=== PATIENT | male | born 1960 | race Caucasian/White ===

== ENCOUNTER 2023-04-30 06:20 | Outpatient (CLI) | payer OTHER, SELFPAY ==
--- NOTE | 2023-04-30 08:07 | W.ANESCHARGE ---
Anesthesia Charges Start Date/Time Anesthesia Start Date: 04/30/23 Anesthesia Start Time: 07:29 Stop Date/Time Anesthesia Stop Date: 04/30/23 Anesthesia Stop Time: 07:54
--- NOTE | 2023-04-30 09:56 | W.ANESCHARGE ---
Anesthesia Charges Start Date/Time Anesthesia Start Date: 04/30/23 Anesthesia Start Time: 07:29 Stop Date/Time Anesthesia Stop Date: 04/30/23 Anesthesia Stop Time: 07:54
== END 2023-04-30 06:21 | disposition home or self-care (01) ==
LOC: OP CLINIC 06:21
PROVIDERS: PCP Internal Medicine; Visit Provider Internal Medicine
DX: Z12.11 Encounter for screening for malignant neoplasm of colon (principal); K63.5 Polyp of colon; K57.30 Diverticulosis of large intestine without perforation or abscess without bleeding; Z86.010 Personal history of colon polyps
CPT/HCPCS: 00811; 45380; 88305; J2704